=== PATIENT | male | born 1990 | race African-American/Black ===

== ENCOUNTER 2020-02-08 14:21 | Emergency (ER) | payer OTHER ==
[~2020-02-08] VITALS: Ht 175.3 cm; Wt 76.7 kg
[2020-02-08 16:15] LABS: BASO % 0.7 % (0.0-1.0); EOS # 0.1 10^3/uL (0.0-0.5); EOS % 2.2 % (0.0-3.0); HEMATOCRIT 47.8 % (42.0-52.0); HEMOGLOBIN 14.8 g/dl (13.5-17.5); LYMPH # 1.6 10^3/uL (1.5-5.0); LYMPH % 28.9 % (24.0-44.0); MEAN CORPUSCULAR HEMOGLOBIN 25.6 pg (27.0-33.0); MEAN CORPUSCULAR VOLUME 82.7 fl (80.0-96.0); MONO # 0.7 10^3/uL (0.0-0.8); MONO % 12.9 % (0.0-5.0); NEUTROPHILS # 3.1 10^3/uL (1.5-8.5); NEUTROPHILS % 54.9 % (36.0-66.0); PLATELET COUNT, AUTOMATED 306 10^3/uL (150-450); RED BLOOD COUNT 5.78 10^6/uL (4.30-6.10); WHITE BLOOD COUNT 5.6 10^3/uL (4.0-10.0)
[2020-02-08 16:35] LABS: ERYTHROCYTE SEDIMENTATION RATE 3 mm/hr (0-15)
[2020-02-08 16:39] LABS: ALBUMIN 3.8 GM/DL (3.2-5.2); ALT/SGPT 19 U/L (12-78); BILIRUBIN,DIRECT 0.1 MG/DL (0.0-0.2); BILIRUBIN,TOTAL 0.4 MG/DL (0.2-1.0); BLOOD UREA NITROGEN 10 MG/DL (7-18); C REACTIVE PROTEIN QUANTITATIV 2.42 MG/DL (0.00-0.30); CALCIUM LEVEL 9.7 MG/DL (8.5-10.1); CARBON DIOXIDE LEVEL 32 MEQ/L (21-32); CHLORIDE LEVEL 105 MEQ/L (98-107); CREATININE FOR GFR 1.21 MG/DL (0.70-1.30); GLOMERULAR FILTRATION RATE > 60.0 (>60); GLUCOSE, FASTING 80 MG/DL (70-100); POTASSIUM SERUM 4.3 MEQ/L (3.5-5.1); SODIUM LEVEL 140 MEQ/L (136-145); TOTAL PROTEIN 7.7 GM/DL (6.4-8.2)
[2020-02-08] MEDS ORDERED: ISOVUE-370 76% 100ML VIAL As Ordered ONE (16:51)
[2020-02-08 17:27] LABS: HIV 1&2 SCREEN CENTAUR NEGATIVE (NEGATIVE)
[2020-02-08] MEDS ORDERED: KETOROLAC 30 MG/ML 1ML VIAL IV ONE (17:45)
--- NOTE | 2020-02-08 17:49 | REPVR ---
PROCEDURE INFORMATION: Exam: CT Neck With Contrast Exam date and time: 02/08/2020 5:02 PM Age: 29 years old Clinical indication: Neck pain; Additional info: Multiple firm areas to neck ttp, ulcerated/macerated cheecks TECHNIQUE: Imaging protocol: Computed tomography images of the neck with intravenous contrast. Radiation optimization: All CT scans at this facility use at least one of these dose optimization techniques: automated exposure control; mA and/or kV adjustment per patient size (includes targeted exams where dose is matched to clinical indication); or iterative reconstruction. Contrast material: ISOVUE 370; Contrast volume: 75 ml; Contrast route: INTRAVENOUS (IV); COMPARISON: No relevant prior studies available. FINDINGS: Orbital cavity: Normal appearing orbits. Mastoid air cells: Clear mastoid air cells. Large amount of cerumen in the right external canal. Paranasal sinuses: There is a 1 cm mucous retention cyst inferior aspect of the left maxillary sinus. Nasopharynx: Nasopharynx appears clear. Oropharynx: Normal appearing oropharynx. Hypopharynx: Normal appearing hypopharynx. Larynx: Unremarkable. Normal epiglottis. Retropharyngeal space: Unremarkable. Submandibular/Parotid glands: Normal. Glands are normal in size. Thyroid: 3 mm cystic nodule left lobe of the thyroid. Lymph nodes: There is a 1.2 cm round submandibular lymph node just left of midline and a 1 cm lymph node anterior to the left submandibular gland. Trachea: Normal appearing trachea. Lungs: The apical portions of the lungs appear clear. Bones/joints: There is no evidence of bony abnormality. There is leftward deviation of the nasal septum. Soft tissues: According to history there are a palpable areas along the skin surface of the cheek area. This cannot be identified with certainty on the CT examination and would need to be assessed clinically. IMPRESSION: 1. 1.2 cm in 1 cm submandibular left lymph nodes. 2. Areas of skin thickening cannot be appreciated with certainty on the CT and recommend clinical correlation for assessment. COMMENTS: Consistent with the [employer]'s Incidental Findings Committee white paper ([employer]iol 2015): In patients under 35 years old with an incidental thyroid nodule equal to or greater than [address], MRI or extrathyroidal US, further evaluation with dedicated thyroid US is recommended for patients with normal life expectancy and without comorbidities. For smaller nodules without suspicious features, no further evaluation or follow up is recommended. Electronically signed by: Man Sesay On 02/08/2020 17:49:00 PM
--- NOTE | 2020-02-08 19:05 | REPVR ---
PROCEDURE INFORMATION: Exam: US Soft Tissue Head and Neck, Soft Tissue Exam date and time: 02/08/2020 6:48 PM Age: 29 years old Clinical indication: Abnormal findings; Abnormal radiologic study of neck; Additional info: Spoke with radiologist, enlarged lymph on left TECHNIQUE: Imaging protocol: Real-time ultrasound scan of the head and neck with image documentation. Exam focused on the soft tissue in the region of clinical concern. COMPARISON: CT Neck with contrast 02/08/2020 4:52 PM FINDINGS: Lymph nodes: The ultrasound concentrated on a left submandibular lymph node that was also seen on CT. This is left lymph node measures 2.3 cm in length by 1 cm in thickness with mild lobulation. A vascular pedicle is seen. Soft tissues: Unremarkable. No fluid collections. IMPRESSION: 2.3 cm x 1 cm left submandibular lymph node. Electronically signed by: Man Sesay On 02/08/2020 19:05:35 PM
[2020-02-08] MEDS ORDERED: MAGICMW SSP (19:46)
[2020-02-08 20:05] VITALS: BP 130/76
--- NOTE | 2020-02-09 09:54 | ED PDOC ---
Post-Departure Follow-Up dr painter and ft jonathan gilliam faxed formal report of ct neck for fu Derek Yepez MD Feb 09, 2020 09:54
--- NOTE | 2020-02-09 09:55 | ED PDOC ---
Post-Departure Follow-Up thyroid us also faxed to daryl christine and Derek Pack MD Feb 09, 2020 09:55
== END 2020-02-08 20:07 | disposition home or self-care (01) ==
LOC: M ED 14:21
DX: K13.79 Other lesions of oral mucosa (principal); R59.9 Enlarged lymph nodes, unspecified
CPT/HCPCS: 70491; 76536; 80048; 80076; 85025; 85652; 86140; 87389; 87529; 96374; 99284; J1885; Q9967